=== PATIENT | male | born 1965 | race Two or more races ===

== ENCOUNTER 2017-07-05 20:42 | Emergency (ER) | payer BC ==
[2017-07-05 20:54] VITALS: TEMP 98.2; BMI 29.7
--- NOTE | 2017-07-05 21:15 | PDOC ---
History of Present Illness - General History Source: Patient Exam Limitations: No Limitations - History of Present Illness Initial Comments: 07/05/17 21:38 The patient is a 51 year old male, with a significant past medical history of HTN (controlled with medications) who presents to the emergency department with diarrhea, LLQ abdominal pain and L Leg pain. Patient states he recently visited and returned on 07/02. In , patient was experiencing intermittent diarrhea and LLQ abdominal pain. Patient describes diarrhea as large watery bowel movements however denies tarry or bloody stools. Patient reports severe cramping in his LLQ however denies any associated fever, chills, nausea, vomit or constipation. Patient states his diarrhea and abdominal pain has worsened and visited Urgent care for his GI complaints. Patient was sent home with Imodium however denied any relief. Patient also states since his flight, has been experiencing L leg pain however denies any SOB, chest pain, headache or dizziness. Patient presents to the ED for further evaluation. Allergies: NKA Past surgical history: None Social history: None PCP: None <Pastora Apple - Last Filed: 07/05/17 23:40> - General History Source: Patient <MeganChris - Last Filed: 07/06/17 00:40> - General Chief Complaint: Pain, Acute Stated Complaint: DIARRHEA Time Seen by Provider: 07/05/17 21:01 Past History <Pastora Apple - Last Filed: 07/05/17 23:40> - Past Medical History HTN: Yes - Psycho/Social/Smoking Cessation Hx Suicidal Ideation: No Smoking History: Never smoked <Chris Guzman - Last Filed: 07/06/17 00:40> - Past Medical History Allergies/Adverse Reactions: Allergies Allergy/AdvReac Type Severity Reaction Status Date / Time No Known Allergies Allergy Verified 03/23/15 17:37 Home Medications: Ambulatory Orders Lisinopril/Hydrochlorothiazide [Lisinopril-Hctz 20-25 mg Tab] 1 each PO DAILY Rivaroxaban [Xarelto -] 10 mg PO DAILY #30 tablet 07/06/17 Review of Systems - Review of Systems Able to Perform ROS?: Yes Comments:: 07/05/17 21:38 GENERAL/CONSTITUTIONAL: No fever or chills. No weakness. HEAD, EYES, EARS, NOSE AND THROAT: No change in vision. No ear pain or discharge. No sore throat. CARDIOVASCULAR: No chest pain or shortness of breath. RESPIRATORY: No cough, wheezing, or hemoptysis. GASTROINTESTINAL: +diarrhea. +LLQ abdominal pain. No nausea, vomiting, constipation. GENITOURINARY: No dysuria, frequency, or change in urination. MUSCULOSKELETAL: + L leg pain. No joint or muscle swelling or pain. No neck or back pain. SKIN: No rash NEUROLOGIC: No headache, vertigo, loss of consciousness, or change in strength/ sensation. ENDOCRINE: No increased thirst. No abnormal weight change. HEMATOLOGIC/LYMPHATIC: No anemia, easy bleeding, or history of blood clots. ALLERGIC/IMMUNOLOGIC: No hives or skin allergy. <Pastora Apple - Last Filed: 07/05/17 23:40> *Physical Exam - Vital Signs Last Vital Signs Temp Pulse Resp BP Pulse Ox 98.2 F 111 H 18 131/104 97 07/05/17 20:49 07/05/17 20:49 07/05/17 20:49 07/05/17 20:49 07/05/17 20:49 - Physical Exam Comments: 07/05/17 21:38 GENERAL: Awake, alert, and fully oriented, in no acute distress HEAD: No signs of trauma EYES: PERRLA, EOMI, sclera anicteric, conjunctiva clear ENT: Auricles normal inspection, hearing grossly normal, nares patent, oropharynx clear without exudates. Moist mucosa NECK: Normal ROM, supple, no lymphadenopathy, JVD, or masses LUNGS: Breath sounds equal, clear to auscultation bilaterally. No wheezes, and no crackles HEART: Regular rate and rhythm, normal S1 and S2, no murmurs, rubs or gallops ABDOMEN: Soft, nontender, normoactive bowel sounds. No guarding, no rebound. No masses EXTREMITIES: Normal range of motion, no edema. No clubbing or cyanosis. No cords, erythema, or calf tenderness NEUROLOGICAL: Cranial nerves II through XII grossly intact. Normal speech, normal gait SKIN: Warm, Dry, normal turgor, no rashes or lesions noted. <Pastora Apple - Last Filed: 07/05/17 23:40> - Vital Signs Last Vital Signs Temp Pulse Resp BP Pulse Ox 98.2 F 111 H 18 131/104 97 07/05/17 20:49 07/05/17 20:49 07/05/17 20:49 07/05/17 20:49 07/05/17 20:49 <Chris Guzman - Last Filed: 07/06/17 00:40> ED Treatment Course - LABORATORY CBC & Chemistry Diagram: 07/05/17 22:30 07/05/17 22:30 <Pastora Apple - Last Filed: 07/05/17 23:40> - LABORATORY CBC & Chemistry Diagram: 07/05/17 22:30 07/05/17 22:30 <Chris Guzman - Last Filed: 07/06/17 00:40> *DC/Admit/Observation/Transfer - Attestations Scribe Attestion: 07/05/17 21:40 Documentation prepared by Pastora Apple, acting as infertility medical assistant for Chris Guzman DO. <Pastora Apple - Last Filed: 07/05/17 23:40> - Discharge Dispostion Admit: No <Chris Guzman - Last Filed: 07/06/17 00:40> Diagnosis at time of Disposition: Diarrhea Qualifiers: Diarrhea type: unspecified type Qualified Code(s): R19.7 - Diarrhea, unspecified Deep vein thrombosis (DVT) Qualifiers: DVT location: lower extremity Affected thrombotic vein of extremity: popliteal Chronicity: acute Laterality: left Qualified Code(s): I82.432 - Acute embolism and thrombosis of left popliteal vein - Discharge Dispostion Disposition: HOME Condition at time of disposition: Stable - Prescriptions Prescriptions: Rivaroxaban [Xarelto -] 10 mg PO DAILY #30 tablet - Referrals Referrals: Tiff Coy [Primary Care Provider] - - Patient Instructions Printed Discharge Instructions: DI for Deep Vein Thrombosis Additional Instructions: Please follow up with your doctor tomorrow for evaluation of the coagulation that will work for you
[2017-07-05] MEDS ORDERED: SODIUM CHLORIDE 1,000 ML IV STA (21:21)
[2017-07-05] MEDS ORDERED: metroNIDAZOLE 250 MG TABLET PO ONE (21:22)
[2017-07-05] MEDS ORDERED: LEVOFLOXACIN 500 MG TABLET (FP) PO ONE (21:22)
[2017-07-05] MEDS ORDERED: LEVOFLOXACIN 500 MG TABLET (FP) ONE (21:55)
[2017-07-05] MEDS ORDERED: metroNIDAZOLE 250 MG TABLET ONE (21:55)
[2017-07-05 22:38] LABS: BASOPHIL 0.5 % (0-2.0); EOSINOPHIL 1.3 % (0-4.5); MCH 30.2 pg (25.7-33.7); MCHC 33.7 g/dl (32.0-35.9); MEAN CELL VOLUME 89.6 fl (80-96); MEAN PLT VOLUME 6.8 fl (7.5-11.1); NEUTROPHILS 61.9 % (42.8-82.8); PLATELET COUNT 317 K/MM3 (134-434); RDW 13.8 % (11.9-15.9); WHITE BLOOD COUNT 10.7 K/mm3 (4.0-10.0)
[2017-07-05 22:47] LABS: INR 1.16 (0.82-1.09); PROTHROMBIN TIME (PATIENT) 12.8 SEC (9.98-11.88)
[2017-07-05 23:06] LABS: ALBUMIN 4.4 g/dl (3.4-5.0); ALK PHOS 109 U/L (45-117); AMYLASE 174 U/L (25-115); ANION GAP 10 (8-16); BILIRUBIN,TOTAL 1.7 mg/dL (0.2-1.0); CALCIUM 9.8 mg/dL (8.5-10.1); CO2 29 mmol/L (21-32); CREATININE 1.2 mg/dL (0.7-1.3); GLUCOSE,RANDOM 97 mg/dL (74-106); SGOT/AST 17 U/L (15-37); SGPT/ALT 22 U/L (12-78); TOT PROT 8.7 g/dl (6.4-8.2)
[2017-07-06] MEDS ORDERED: ENOXAPARIN NA (PORCINE) 100 MG/1 ML DISP.SYRIN SQ ONE ×2 (00:34→00:46)
[2017-07-06 00:54] VITALS: BP 127/80; PULSE 68
--- NOTE | 2017-07-06 11:09 | PDOC ---
Patient Follow-up (Call Back) - Post ED Follow - Up Chief Complaint: Pain, Acute Condition at time of discharge: Stable Disposition at time of original discharge: HOME Reason for Call Back: Radiology - Disposition Referral:: Non Staff, Medical (Zbigniew ) Rx Needed: No Additional Instructions/Notes: Notified by radiologist Dr. Funk of CTAP results: vague hyperdense lesion in the posterior aspect of the pancreatic head. Followup pancreatic study is needed to rule out mass. There is also focal asymmetric thickening of the urinary bladder and followup is needed to rule out neoplasm. Message left for patient's PCP, Dr. Coy ([facility]), with office staff and abnormal results faxed attn: Joanna. Discussed in detail with patient who plans to follow up. He is currently feeling well and is without complaints.
--- NOTE | 2017-07-07 14:08 | EKG ---
Test Reason : Blood Pressure : / mmHG Vent. Rate : 073 BPM Atrial Rate : 073 BPM P-R Int : 168 ms QRS Dur : 088 ms QT Int : 396 ms P-R-T Axes : 055 005 029 degrees QTc Int : 436 ms NORMAL SINUS RHYTHM PROBABLE ATRIAL ABNORMALITY EARLY REPOLARIZATION NO PREVIOUS ECGS AVAILABLE REPEAT EKG IF CLINICALLY INDICATED Confirmed by LINDSAY BEAVER MD ([id number]) on 07/07/2017 2:08:10 PM Referred By: Confirmed By:LINDSAY BEAVER MD
== END 2017-07-06 00:54 | disposition home or self-care (01) ==
LOC: JER 20:42
PROC: 3E023GC Introduction of Other Therapeutic Substance into Muscle, Percutaneous Approach (ICD-10-PCS; principal; 2017-07-05)
PROC: 3E0337Z Introduction of Electrolytic and Water Balance Substance into Peripheral Vein, Percutaneous Approach (ICD-10-PCS; 2017-07-05)
DX: R19.7 Diarrhea, unspecified (principal); I82.432 Acute embolism and thrombosis of left popliteal vein; I10 Essential (primary) hypertension
CPT/HCPCS: 36415; 74177-TC; 80053; 82150; 83690; 85025; 85610; 93005; 93010; 93971-TC; 99282-25

== ENCOUNTER 2019-08-01 13:13 | Emergency (ER) | payer BC ==
--- NOTE | 2019-08-01 13:19 | PDOC ---
Rapid Medical Evaluation Chief Complaint: Abscess Boil Time Seen by Provider: 08/01/19 13:14 Medical Evaluation: Allergies Allergy/AdvReac Type Severity Reaction Status Date / Time No Known Allergies Allergy Verified 03/23/15 17:37 08/01/19 13:16 I performed a brief in-person evaluation of this patient. Briefly, this is a 54-year-old male with a history of pancreatic ca ( neuroendocrine tumor, s/p Whipple 2017 at [facility], no chemo/RTX) as well as history of kidney stones presenting with LLQ pain and dysuria reminiscent of prior episodes of stones. Physical exam findings include: Some distress secondary to pain. LLQ tenderness. I have ordered the following: CBC, CMP, UA/culture. Patient to proceed to the ED for further evaluation. Discharge Disposition - Diagnosis Abdominal pain - Referrals - Patient Instructions - Post Discharge Activity
[2019-08-01 13:20] VITALS: BMI 27.7
--- NOTE | 2019-08-01 13:53 | PDOC ---
History of Present Illness - General Chief Complaint: Pain, Acute Stated Complaint: ABDOMINAL PAIN Time Seen by Provider: 08/01/19 13:14 - History of Present Illness Initial Comments: 08/01/19 14:15 54 y/o m hx of pancreatic Ca s/p whipple on pancreatic enzyme replacement, umbilical hernia s/p repair presenting to the ER with abdominal pain that started approximately 3-4 hours ago. He was treated 3 months ago for a UTI with antibiotics and reports having episodes of abdominal pain since then. Prompted to come to the ER today because of increased pain severity. Pain is sharp in nature, constant and he currently rates it as a 7/10. Pain is located on his left side, is constant and radiates across his lower abdomen. Exacerbated by sudden movements. He took some pain medication at home he is unable to remember but did not get much relief.He endorses increased frequency,urgency,chills but no hematuria. He denies any nausea, vomiting or diarrhea, fever, flank pain or groin pain. 08/01/19 14:26 Past History - Past Medical History Allergies/Adverse Reactions: Allergies Allergy/AdvReac Type Severity Reaction Status Date / Time No Known Allergies Allergy Verified 08/01/19 20:01 Home Medications: Ambulatory Orders NK [No Known Home Medication] 08/01/19 COPD: No HTN: Yes Other medical history: pancreatic cancer - Immunization History Immunization Up to Date: No - Psycho Social/Smoking Cessation Hx Smoking History: Never smoked Have you smoked in the past 12 months: No Information on smoking cessation initiated: No Hx Alcohol Use: No Drug/Substance Use Hx: Yes *Physical Exam - Vital Signs Last Vital Signs Temp Pulse Resp BP Pulse Ox 98.0 F 65 16 145/100 99 08/01/19 13:17 08/01/19 13:17 08/01/19 13:17 08/01/19 13:17 08/01/19 13:17 - Physical Exam Comments: 08/01/19 14:27 GENERAL: Awake, alert, and fully oriented, in no acute distress HEAD: No signs of trauma, normocephalic, atraumatic EYES: PERRLA, EOMI, sclera anicteric, conjunctiva clear ENT: Auricles normal inspection, hearing grossly normal, nares patent, oropharynx clear without exudates. Moist mucosa NECK: Normal ROM, supple, no lymphadenopathy, JVD, or masses LUNGS: No distress, speaks full sentences, clear to auscultation bilaterally HEART: Regular rate and rhythm, normal S1 and S2, no murmurs, rubs or gallops, peripheral pulses normal and equal bilaterally. ABDOMEN: tenderness to palpation of left lower quadrant and periumbilical tenderness. Guarding diffusely EXTREMITIES : Normal inspection, Normal range of motion, no edema. No clubbing or cyanosis NEUROLOGICAL: Cranial nerves II through XII grossly intact. Normal speech, normal gait, no focal sensorimotor deficits SKIN: Warm, Dry, normal turgor, no rashes or lesions noted 08/01/19 23:00 ED Treatment Course - LABORATORY CBC & Chemistry Diagram: 08/01/19 14:10 08/01/19 14:10 Medical Decision Making - Medical Decision Making 08/01/19 20:09 54 y/o m hx of pancreatic Ca s/p whipple on pancreatic enzyme replacement, umbilical hernia s/p repair presenting to the ER with abdominal pain that started approximately 3-4 hours ago cbc, cmp, ua, urine culture, lipase, Meds: normal saline 1L, 4mg morphine 08/01/19 20:09 Pt.reassessed doing a lot better. CT abdomen and pelvis Impression status post cholecystectomy likely s/p surgical absence of the pancreatic head and body left renal simple cyst measuring 3.5cm nonobstructin grenal stone mild dilation and wall thickening of the proximal small bowel loops suggestive of enteritis and ileus. corelate clinically to rule out possibility of mid to distal small bowel obstruction tiny fat containing umbilical hernia inferior vena cava filter is in satisfactory position moderate degenerative disc disease L5-S1 Labs: mildly elevated alkaline phosphatase 164, ketones in urine 1+ UA unremarkable for nitrites, leukocyte esterase Discharged home with follow up to GI and PCP 08/01/19 23:01 Discharge - Discharge Information Problems reviewed: Yes Clinical Impression/Diagnosis: Abdominal pain Condition: Stable Disposition: HOME - Admission No - Follow up/Referral - Patient Discharge Instructions Patient Printed Discharge Instructions: DI for Abdominal Pain-Adult Additional Instructions: Please return to the emergency department immediately should you feel worse in any way or have any of the following symptoms: increasing or different abdominal pain, persistent vomiting, fevers or shaking chills. Please return to the emergency department for a recheck in 8-12 hours if the pain is persistent or worse so we can re-evaluate you and ensure that you are not developing a problem that would require surgery or hospitalization. - Post Discharge Activity Work/Back to School Note: Back to Work
--- NOTE | 2019-08-01 14:26 | PDOC ---
Attending Attestation - Resident Resident Name: Acosta Dowd - ED Attending Attestation I have performed the following: I have examined & evaluated the patient, The case was reviewed & discussed with the resident, I agree w/resident's findings & plan, Exceptions are as noted - HPI HPI: 08/01/19 14:28 54y M hx of pancreatic ca sp whipple, umbilical hernia sp repair presents wth suprapubic pain that has been worsening. 7/0, constant throbbing, withou any radiation to back. Endorses increased frequency, urgency. denies any hematuria/ flank pain, n/v/d, f/c. physical examL abd: soft, mild tenderness diffusely with voluntary guarding (pt states pain
[2019-08-01 14:33] LABS: BASO % 0.3 % (0-2.0); EOS % 0.5 % (0-4.5); HEMATOCRIT 42.4 % (35.4-49); HEMOGLOBIN 14.1 GM/dL (11.7-16.9); LYMPH % 7.6 % (8-40); MCH 29.3 pg (25.7-33.7); MCHC 33.1 g/dl (32.0-35.9); MEAN CELL VOLUME 88.3 fl (80-96); MEAN PLT VOLUME 7.1 fl (7.5-11.1); MONO % 4.6 % (3.8-10.2); PLATELET COUNT 241 K/MM3 (134-434); RDW 13.9 % (11.9-15.9); WHITE BLOOD COUNT 9.2 K/mm3 (4.0-10.0)
[2019-08-01] MEDS ORDERED: SODIUM CHLORIDE 0.9% 500 ML INFUS.BAG IV ONE (14:35)
[2019-08-01 14:56] LABS: ALBUMIN 3.9 g/dl (3.4-5.0); BLOOD UREA NITROGEN 14.8 mg/dL (7-18); CREATININE 0.9 mg/dL (0.55-1.3); POTASSIUM 4.4 mmol/L (3.5-5.1)
[2019-08-01 15:03] LABS: EPI CELLS 0.7 /HPF (0-5/HPF); HYALINE CASTS 0 /lpf (0-8); PH,URINE 7.5 (5.0-8.0); URINE APPEARANCE CLEAR; URINE BACTERIA 6.8 /hpf (NEGATIVE); URINE BILIRUBIN NEGATIVE (NEGATIVE); URINE COLOR YELLOW; URINE GLUCOSE (UA) NEGATIVE (NEGATIVE); URINE KETONE 1+ (NEGATIVE); URINE LEUK ESTERASE NEGATIVE (NEGATIVE); URINE NITRITE NEGATIVE (NEGATIVE); URINE PROTEIN NEGATIVE (NEGATIVE); URINE RBC 5 /hpf (0-4); URINE UROBILINOGEN 0.2 mg/dL (0.2-1.0); URINE WBC 0 /hpf (0-5)
[2019-08-01] MEDS ORDERED: morphine CARPU-JECT 4 MG/1 ML DISP.SYRIN IVPUSH ONE (15:06)
[2019-08-01] MEDS ORDERED: morphine SULFATE 4 MG/ML VIAL ONE (15:11)
[2019-08-01 20:02] VITALS: BP 132/89; PULSE 78; TEMP 98.7
== END 2019-08-01 20:25 | disposition home or self-care (01) ==
LOC: JER 13:13
PROC: 3E033NZ Introduction of Analgesics, Hypnotics, Sedatives into Peripheral Vein, Percutaneous Approach (ICD-10-PCS; principal; 2019-08-01)
DX: R10.9 Unspecified abdominal pain (principal); I10 Essential (primary) hypertension; Z85.07 Personal history of malignant neoplasm of pancreas; Z98.890 Other specified postprocedural states; Z87.440 Personal history of urinary (tract) infections
CPT/HCPCS: 36415; 74177-TC; 80053; 81003; 83690; 85025; 87086; 99283-25